=== PATIENT | male | born 1995 | race American Indian/Alaskan Native ===

== ENCOUNTER 2018-03-06 22:39 | Emergency (ER) | payer SELFPAY ==
[2018-03-06 22:57] VITALS: BP 138/84
[2018-03-07] MEDS ORDERED: TORADOL IM ONE (01:23)
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
== END 2018-03-07 03:10 | disposition home or self-care (01) ==
LOC: ED 22:39
DX: S16.1XXA Strain of muscle, fascia and tendon at neck level, initial encounter (principal); S39.012A Strain of muscle, fascia and tendon of lower back, initial encounter; V87.7XXA Person injured in collision between other specified motor vehicles (traffic), initial encounter; Y93.89 Activity, other specified; Y92.488 Other paved roadways as the place of occurrence of the external cause; Y99.8 Other external cause status
CPT/HCPCS: 96372; 99282; J1885

== ENCOUNTER 2018-03-11 18:05 | Emergency (ER) | payer SELFPAY ==
[2018-03-11 18:17] VITALS: BP 129/67
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
[2018-03-11] MEDS ORDERED: IBUPROFEN PO ONE (19:05)
== END 2018-03-11 19:39 | disposition home or self-care (01) ==
LOC: ED 18:05
DX: S39.012A Strain of muscle, fascia and tendon of lower back, initial encounter (principal); V89.2XXA Person injured in unspecified motor-vehicle accident, traffic, initial encounter; Y93.89 Activity, other specified; Y99.8 Other external cause status; Y92.410 Unspecified street and highway as the place of occurrence of the external cause
CPT/HCPCS: 99282